=== PATIENT | male | born 1965 | race Caucasian/White ===

== ENCOUNTER 2018-02-09 16:19 | Emergency (ER) | payer MEDICAID ==
[2018-02-09] MEDS ORDERED: ACETAMINOPHEN 325 MG TABLET PO STA (16:42)
--- NOTE | 2018-02-09 17:02 | XRAY Report ---
EXAM: CHEST RADIOGRAPHY EXAM DATE: 02/09/2018 04:32 PM. CLINICAL HISTORY: Productive cough for days with fever and sore throat. Shortness of breath. COMPARISON: 12/18/2011. TECHNIQUE: 2 views. FINDINGS: Lungs/Pleura: No focal opacities evident. No pleural effusion. No pneumothorax. Normal volumes. Mediastinum: Heart and mediastinal contours are unremarkable. Other: No bony abnormalities noted. IMPRESSION: Normal 2-view chest radiography. [facility] Referring Provider Line: [phone] SITE ID: [id number]
[2018-02-09] MEDS ORDERED: IBUPROFEN 800 MG TABLET PO STA (17:44)
[2018-02-09] MEDS ORDERED: HYDROcod/ACETAM 5/325 MG TABLET PO STA (17:44)
--- NOTE | 2018-02-09 17:47 | ED Physician Documentation ---
History of Present Illness - Stated complaint Stated Complaint: FEVER/SORE THROAT/ALL OVER SKIN PX - Chief complaint Chief Complaint: Fever - History obtained from History obtained from: Patient - History of Present Illness Timing: Other (Sick for about 72 hours with somewhat productive cough, severe chills and body aches, sore throat. He thinks he had a flu shot last year but is not sure. No recent travel.) Review of Systems Constitutional: reports: Fever, Chills, Fatigue Nose: reports: Rhinorrhea / runny nose Throat: reports: Sore throat Cardiac: denies: Chest pain / pressure, Palpitations Respiratory: reports: Cough. denies: Dyspnea PD PAST MEDICAL HISTORY - Past Medical History Cardiovascular: Hypertension Respiratory: None Neuro: None Endocrine/Autoimmune: None GI: None : Benign prostate hypertrophy HEENT: None Psych: None Musculoskeletal: None Derm: None - Past Surgical History Past Surgical History: Yes - Present Medications Home Medications: Ambulatory Orders Medication Instructions Recorded Confirmed HYDROcod/ACETAM 5/325 [[place] 5/325] 1 - 2 ea PO Q6H PRN #15 tablet 02/09/18 Ibuprofen [Motrin] 800 mg PO Q8H PRN #30 tablet 02/09/18 - Allergies Allergies/Adverse Reactions: Allergies Allergy/AdvReac Type Severity Reaction Status Date / Time No Known Drug Allergies Allergy Verified 02/09/18 16:27 - Social History Does the pt smoke?: No Smoking Status: Never smoker Does the pt drink ETOH?: Yes Does the pt have substance abuse?: No - Immunizations Immunizations are current?: Yes - POLST Patient has POLST: No PD ED PE NORMAL - Vitals Vital signs reviewed: Yes - General General: Alert and oriented X 3, No acute distress - HEENT HEENT: PERRL, EOMI, Pharynx benign (red pillars, no exudates) - Neck Neck: Supple, no meningeal sign, No bony TTP - Cardiac Cardiac: RRR, No murmur - Respiratory Respiratory: No respiratory distress, Clear bilaterally - Abdomen Abdomen: Non tender - Derm Derm: No rash - Neuro Neuro: Alert and oriented X 3, Normal speech Results - Vitals Vitals: Vital Signs - 24 hr 02/09/18 02/09/18 16:24 17:43 Temperature 39.2 C H 40.1 C H Heart Rate 100 99 Respiratory 18 20 Rate Blood Pressure 146/105 H 133/83 H O2 Saturation 96 96 Oxygen O2 Source Room air - Labs Labs: Laboratory Tests 02/09/18 16:45 Influenza A (Rapid) Negative Influenza B (Rapid) POSITIVE H Influenza Types A,B Ag + H - Rads (name of study) 2v chest Radiology: EMP read contemporaneously (clear) PD MEDICAL DECISION MAKING - ED course ED course: 53-year-old gentleman with influenza B, Tamiflu is considered but he is outside of the range of effectiveness and therefore is not recommended per guidelines. As he has been sick for 72 hours. Departure - Departure Disposition: Home, Self Care Clinical Impression: Influenza Condition: Good Record reviewed to determine appropriate education?: Yes Instructions: ED Flu Prescriptions: HYDROcod/ACETAM 5/325 [[place] 5/325] 1 - 2 ea PO Q6H PRN #15 tablet PRN Reason: Pain Ibuprofen [Motrin] 800 mg PO Q8H PRN #30 tablet PRN Reason: PAIN &/OR FEVER Comments: Drink plenty of fluids, return Monday if not improved, anytime if worsening or if new symptoms develop. Your blood pressure was elevated today on check into the emergency department. This does not mean that you have hypertension, it is a common phenomenon to come to the emergency department and have elevated blood pressure. I recommend that you see your primary care physician within the week to have it rechecked when you are feeling better. Do not drink or drive while taking narcotic pain medication. Note that many narcotic pain relievers also contain Tylenol/acetaminophen. Please ensure that your total dose of acetaminophen from all sources does not exceed 3 g (3000 mg) per day. You may get constipated while on this medication. Take a stool softener such as Colace twice a day while you are on it. Also add an dado-zbo-dhrbjmy laxative such as senna or MiraLAX on any day that you do not have a bowel movement. If you received a narcotic pain medication or sedative while in the emergency department, do not drive for the next 24 hours.
[2018-02-09 18:02] VITALS: BP 158/92
== END 2018-02-09 18:00 | disposition home or self-care (01) ==
LOC: ED 16:19
DX: J11.1 Influenza due to unidentified influenza virus with other respiratory manifestations (principal); I10 Essential (primary) hypertension; N40.0 Benign prostatic hyperplasia without lower urinary tract symptoms
CPT/HCPCS: 71046; 87275; 87276; 99283; A9270

== ENCOUNTER 2021-08-30 13:38 | Outpatient (CLI) | payer MEDICAID ==
--- NOTE | 2021-09-09 02:21 | XRAY Report ---
PROCEDURE: Knee Standing AP View Only INDICATIONS: OSTEOARTHRITIS OF THE KNEES TECHNIQUE: 1 views of the left knee, and 1 views of the right knee. Images are available for interp retation on 09/08/2021. COMPARISON: None. FINDINGS: Bones: No acute fractures or dislocations. No suspicious bony lesions. There is severe lateral righ t compartment narrowing. Minimal to mild right medial as well as minimal left medial and lateral comp artment narrowing are present. Particular osteophytes are most notable on the right. No erosions. Soft tissues: No knee joint effusions. No suspicious soft tissue calcification. IMPRESSION: Arthritic changes most severe in the right as above. Reviewed by: America Hunter MD on 09/09/2021 1:15 AM PDT Approved by: America Hunter MD on 09/09/2021 1:15 AM PDT Station ID: [id number]
== END 2021-08-30 23:59 ==
LOC: DI.N 13:38
PROVIDERS: ATTEND Physician Assistant Medical
DX: M17.0 Bilateral primary osteoarthritis of knee (principal)

== ENCOUNTER 2021-10-07 08:00 | Outpatient (CLI) | payer MEDICAID ==
--- NOTE | 2021-10-07 15:30 | XRAY Report ---
PROCEDURE: Knee 4 View BILAT INDICATIONS: OSTEOARTHRITIS, BILATERAL KNEES TECHNIQUE: 4 views of the bilateral knee(s) were acquired. COMPARISON: X-ray knee 08/30/2021 FINDINGS: Bones: No fractures or dislocations. No suspicious bony lesions. There is severe lateral right com partment narrowing with minimal to mild medial and patellofemoral compartment narrowing on the right. The left knee demonstrates minimal to mild medial and patellofemoral compartment narrowing. Periarti cular osteophytes are noted most prominently at the right lateral compartment. No erosions. Soft tissues: No joint effusion. No suspicious soft tissue calcifications. IMPRESSION: Bilateral arthritic changes above most severe in the lateral compartment on the right. Reviewed by: America Hunter MD on 10/07/2021 3:29 PM PST Approved by: America Hunter MD on 10/07/2021 3:29 PM [facility] Station ID: [id number]
== END 2021-10-07 23:59 | disposition home or self-care (01) ==
LOC: DI.N 08:00
PROVIDERS: ATTEND Physician Assistant
DX: M17.0 Bilateral primary osteoarthritis of knee (principal)

== ENCOUNTER 2023-10-25 15:15 | Outpatient (CLI) | payer MEDICAID ==
[2023-10-25 20:43] LABS: BASOPHILS # (AUTO) 0.1 10^3/uL (0.0-0.1); BASOPHILS % (AUTO) 0.7 %; EOSINOPHILS # (AUTO) 0.3 10^3/uL (0.0-0.7); HCT - HEMATOCRIT 45.4 % (42.0-52.0); HGB - HEMOGLOBIN 15.2 g/dL (14.0-18.0); LYMPHOCYTES # (AUTO) 1.8 10^3/uL (1.5-3.5); LYMPHOCYTES % (AUTO) 18.3 %; MEAN CORPUSCULAR HGB CONC 33.5 g/dL (32.0-36.0); MEAN CORPUSCULAR VOLUME 86.6 fL (80.0-94.0); MEAN PLATELET VOLUME 11.3 fL (7.4-11.4); MONOCYTES # (AUTO) 1.1 10^3/uL (0.0-1.0); MONOCYTES % (AUTO) 11.3 %; NEUTROPHILS # (AUTO) 6.5 10^3/uL (1.5-6.6); NEUTROPHILS % (AUTO) 66.5 %; PLT - PLATELET COUNT 313 10^3/uL (130-450); RED BLOOD COUNT 5.24 10^6/uL (4.70-6.10); RED CELL DISTRIBUTION WIDTH 13.2 % (12.0-15.0); WHITE BLOOD COUNT 9.8 x10^3/uL (4.8-10.8)
[2023-10-25 20:51] LABS: ALBUMIN 4.3 g/dL (3.2-5.5); ALBUMIN/GLOBULIN RATIO 1.7 (1.0-2.2); BILIRUBIN,TOTAL 0.3 mg/dL (0.2-1.0); CALCIUM 9.7 mg/dL (8.5-10.3); CREATININE 0.9 mg/dL (0.6-1.3); POTASSIUM 4.1 mmol/L (3.5-4.5); TOTAL PROTEIN 6.9 g/dL (6.4-8.9)
== END 2023-10-25 15:30 | disposition home or self-care (01) ==
LOC: LAB.N 15:15
PROVIDERS: ATTEND Nurse Practitioner
DX: R60.0 Localized edema (principal)
CPT/HCPCS: 36415; 80053; 85025; 85379

== ENCOUNTER 2024-03-07 05:13 | Emergency (ER) | payer MEDICAID ==
[2024-03-07] MEDS: KETOROLAC 60 MG/2 ML VIAL IM STA (06:08)
[2024-03-07] MEDS: HYDROmorphone 1 MG/ML CARPUJECT IM STA (06:08)
[2024-03-07] MEDS: DEXAMETHASONE 10 MG/ML VIAL IM STA (06:08)
--- NOTE | 2024-03-07 06:26 | ED Physician Documentation ---
History of Present Illness - Stated complaint Stated Complaint: BACK/NECK PX - Chief complaint Chief Complaint: Back Pain - History obtained from History obtained from: Patient - Additonal information Additional information: The pt comes to the ED with CC of pain and stiffness in the muscles of his R lumbar area and neck for the past few weeks. He states he has a very physical job where he is lifting 40-50lb at a time, and on top of that, he has been moving, so has been carrying heavy boxes for the past several weeks, as well. He states that yesterday, he fell off the tailgate of his truck and landed on his L side, but it is only his R side that hurts. No head injury. No neurologic deficits. No other complaints at this time. PD PAST MEDICAL HISTORY - Past Medical History Past Medical History: Yes Cardiovascular: Hypertension Respiratory: None Endocrine/Autoimmune: None GI: None : Benign prostate hypertrophy HEENT: None Psych: None Musculoskeletal: None Derm: None - Past Surgical History Past Surgical History: Yes - Present Medications Home Medications: Ambulatory Orders Medication Instructions Recorded Confirmed HYDROcod/ACETAM 5/325 [[place] 5/325] 1 - 2 ea PO Q6H PRN #15 tablet 02/09/18 Ibuprofen [Motrin] 800 mg PO Q8H PRN #30 tablet 02/09/18 Cyclobenzaprine [Flexeril] 10 mg PO TID PRN #20 tablet 03/07/24 HYDROcod/ACETAM 5/325 [[place] 5/325] 1 - 2 tablet PO Q6H PRN #14 tablet 03/07/24 - Allergies Allergies/Adverse Reactions: Allergies Allergy/AdvReac Type Severity Reaction Status Date / Time No Known Drug Allergies Allergy Verified 03/07/24 05:21 - Social History Does the pt smoke?: No Smoking Status: Never smoker Does the pt drink ETOH?: Yes Does the pt have substance abuse?: No - Immunizations Immunizations are current?: Yes - POLST Patient has POLST: No PD ED PE NORMAL - Vitals Vital signs reviewed: Yes - General General: Alert and oriented X 3, No acute distress, Well developed/nourished - HEENT HEENT: Atraumatic, PERRL - Neck Neck: Supple, no meningeal sign, No bony TTP, Other (TTP R paraspinal musculature.) - Respiratory Respiratory: No respiratory distress - Back Back: No spinal TTP, Other (TTP R lumbar paraspinal musculature, extending to sciatic joint.) - Derm Derm: Normal color, Warm and dry, No rash - Extremities Extremities: No deformity, No tenderness to palpate, No edema - Neuro Neuro: Alert and oriented X 3, 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, No motor deficit, No sensory deficit, Normal speech - Psych Psych: Normal mood, Normal affect Results - Vitals Vitals: Oxygen O2 Source Room air - Rads (name of study) cervical spine XR Relevant Findings:: Final report received, See rad report (djd, otherwise neg) Lumbar spine XR series Relevant Findings:: Final report received, See rad report (chronic wedging of T12, DJD, otherwise negative.) PD Medical Decision Making - ED course Complexity details: reviewed results, re-evaluated patient, considered differential, d/w patient ED course: The pt was treated symptomatically in the ED, and XR series of L-spine and C- spine were performed, with no acute findings. I d/w pt that he does have some chronic degenerative changes, and this is likely contributing. However, most of his discomfort seems to be muscular, and I expect that ultimately, this will blow over on its own. We have discussed symptomatic management at home, as well as the need to follow up and discuss MRI if he is not doing better in the next few weeks. Departure - Departure Disposition: 01 Home, Self Care Clinical Impression: Lumbar paraspinal muscle spasm, Neck muscle spasm Condition: Stable Instructions: Torticollis, ED Spasm Back No Trauma, ED Spasm Neck No Injury Prescriptions: Cyclobenzaprine [Flexeril] 10 mg PO TID PRN #20 tablet PRN Reason: Spasms HYDROcod/ACETAM 5/325 [[place] 5/325] 1 - 2 tablet PO Q6H PRN #14 tablet PRN Reason: Pain Comments: Your x-rays look goodthere is no evidence of malalignment. The images of your neck reflect muscle spasm and the way that your neck is positioned. MRI would be a better test for both your neck and back as it would show the discs, ligaments, tendons, and other soft tissue structures such as nerves. If you continue to have pain without improvement over the next couple of weeks, you should talk to your primary doctor/provider about having MRI done. The [facility] is the clinic that is taking follow-ups for emergency patients who do not have a primary doctor already. The phone number for the [facility] is [phone]. Please call and make the next available appointment to follow- up with them and let them know you were seen in the emergency department. Forms: Activity restrictions Discharge Date/Time: 03/07/24 06:55
[2024-03-07 07:09] VITALS: BP 126/83; O2SAT 96
--- NOTE | 2024-03-07 08:14 | XRAY Report ---
PROCEDURE: Cervical Spine 2-3V INDICATIONS: pain TECHNIQUE: 3 view(s) of the cervical spine were acquired. COMPARISON: None. FINDINGS: Bones: No fractures or dislocations to the T1 level. Straightening of normal cervical lordosis is s een. Degenerative endplate changes are noted at C5-6 level. The lateral masses of C1 appear intact on the odontoid view. No suspicious bony lesions. Soft tissues: No prevertebral soft tissue swelling. IMPRESSION: No displaced fracture or traumatic subluxation. Degenerative disc disease in lower cervical spine. Findings are concordant with preliminary interpretation provided by [facility]. Reviewed by: Zoran Ballesteros MD on 03/07/2024 8:12 AM PDT Approved by: Zoran Ballesteros MD on 03/07/2024 8:12 AM PDT Station ID: [id number]
--- NOTE | 2024-03-07 08:38 | XRAY Report ---
PROCEDURE: Lumbar Spine 2-3V INDICATIONS: pain/fall TECHNIQUE: 3 views of the lumbar spine were acquired. COMPARISON: 02/09/2018 FINDINGS: Bones: 5 kwo-ykm-nojsant vertebrae are present. Grade 1 retrolisthesis of T12 on L1. Grade 1 anterol isthesis of L4 on L5. Moderate disc height loss at all levels. Facet arthrosis of L4-S1. Chronic ante rior wedging of the T12 vertebral body. Soft tissues: Overlying bowel gas pattern is normal. No suspicious soft tissue calcifications. Mod erate colonic stool load. IMPRESSION: Chronic anterior wedging of the T12 vertebral body. Moderate, multilevel degenerative disc disease. Findings are concordant with preliminary interpretation provided by [facility]. Reviewed by: Nicolas Lozoya MD on 03/07/2024 8:37 AM PDT Approved by: Nicolas Lozoya MD on 03/07/2024 8:37 AM PDT Station ID: [id number]
== END 2024-03-07 06:55 | disposition home or self-care (01) ==
LOC: ED 05:13
DX: M62.830 Muscle spasm of back (principal); M51.36 Other intervertebral disc degeneration, lumbar region
CPT/HCPCS: 72040; 72100; 96372; 99283; 99284; J1170